=== PATIENT | male | born 1960 | race Caucasian/White ===

== ENCOUNTER → 2025-07-28 12:29 | Outpatient (REF) | payer OTHER, SELFPAY | LOC: EMG 12:29 | PROVIDERS: ATTENDING PHYSICIAN Psychiatry & Neurology Neurology; FAMILY PHYSICIAN Family Medicine | DX: M79.606 Pain in leg, unspecified (principal); R20.0 Anesthesia of skin | CPT/HCPCS: 95886; 95910 ==